=== PATIENT | female | born 1940 | race Caucasian/White ===

== ENCOUNTER 2018-03-31 14:43 | Outpatient (CLI) | payer MEDICARE ==
--- NOTE | 2018-03-31 16:43 | RAD ---
2 VIEWS RIGHT HIP: Date: 03/31/18 COMPARISON: None. HISTORY: Right-sided hip pain. FINDINGS: There is moderate superior joint space narrowing with lateral acetabular osteophyte formation and inf eromedial femoral head osteophyte formation. No fracture or dislocation. IMPRESSION: Degenerative joint disease. POS: [facility]
== END 2018-03-31 14:44 | disposition home or self-care (01) ==
LOC: BURRAD 14:43
PROVIDERS: ATTEND Family Medicine
DX: M25.551 Pain in right hip (principal); M16.11 Unilateral primary osteoarthritis, right hip

== ENCOUNTER 2019-07-09 15:47 | Outpatient (CLI) | payer MEDICARE ==
--- NOTE | 2019-07-09 16:29 | RAD ---
XR Abdomen 1 View/KUB HISTORY: Viral illness. Nausea, vomiting and diarrhea COMPARISON: None. FINDINGS: There are right renal calculi measuring 10 and 13 mm respectively. There are postop changes and metallic hardware in the lower lumbar spine. The bowel gas pattern is unremarkable.
== END 2019-07-09 15:48 | disposition home or self-care (01) ==
LOC: BURRAD 15:47
PROVIDERS: ATTEND Registered Nurse Community Health
DX: B34.9 Viral infection, unspecified (principal)
CPT/HCPCS: 74018

== ENCOUNTER 2021-05-04 17:40 | Emergency (ER) | payer MEDICARE ==
[2021-05-05 08:44] LABS: SARS-CoV-2 PCR by NAA DETECTED (NotDetected)
== END 2021-05-04 18:25 | disposition home or self-care (01) ==
LOC: BURERS 17:40
DX: U07.1 COVID-19 (principal); I10 Essential (primary) hypertension; Z86.73 Personal history of transient ischemic attack (TIA), and cerebral infarction without residual deficits
CPT/HCPCS: U0003; U0005; 99283

== ENCOUNTER 2021-06-02 16:58 | Emergency (ER) | payer MEDICARE ==
[2021-06-02] MEDS ORDERED: Sulfameth/Trimethoprim DS 800-160mg TAB ONE (18:12)
[2021-06-02] MEDS ORDERED: Cephalexin 250 MG CAP ONE (18:12)
== END 2021-06-02 18:05 | disposition home or self-care (01) ==
LOC: BURERS 16:58
DX: L03.012 Cellulitis of left finger (principal); I10 Essential (primary) hypertension
CPT/HCPCS: 99283

== ENCOUNTER 2021-06-13 11:49 | Outpatient (CLI) | payer MEDICARE | END 2021-06-13 11:50 | disposition home or self-care (01) | LOC: BURRAD 11:49 | PROVIDERS: ATTEND Family Medicine | DX: M25.561 Pain in right knee (principal); M17.11 Unilateral primary osteoarthritis, right knee ==

== ENCOUNTER 2021-08-29 14:10 | Outpatient (CLI) | payer MEDICARE ==
[2021-08-29 14:49] LABS: #Basophils 0.1 thou/uL (0.0-0.2); #Eosinphils 0.3 thou/uL (0.0-0.7); #Lymphocytes 2.2 thou/uL (1.20-3.40); #Monocytes 0.7 thou/uL (0.11-0.59); #Neutrophils 6.6 thou/uL (1.40-6.50); %Basophils 1.2 % (0.0-1.0); %Eosinophils 2.8 % (0.0-10.0); %Monocytes 6.7 % (0.0-10.0); %Neutrophils 67.3 % (42.0-75.0); Mean Corpuscular HGB CONC 33.8 g/dL (32.0-36.0); Mean Corpuscular Hemoglobin 31.5 pg (27.0-31.0); Mean Corpuscular Volume 93.1 fL (78.0-98.0); Mean Platelet Volume 8.1 fL (7.4-10.4); Platelet Count 283 thou/uL (130-400); RBC Distribution Width 12.8 % (11.5-14.5); Red Blood Cell (RBC) Count 4.12 mill/uL (4.20-5.40); White Blood Cell (WBC) Count 9.8 thou/uL (4.8-10.8)
[2021-08-29 15:18] LABS: ALT (SGPT) 24 U/L (8-55); AST (SGOT) 17 U/L (5-34); Albumin 4.3 g/dL (3.4-4.8); Alkaline Phosphatase 67 U/L (40-110); Anion Gap 16 mmol/L (10-20); BUN (Urea Nitrogen) 21 mg/dL (9.8-20.1); Bilirubin, Total 0.4 mg/dL (0.2-1.2); Calc. Creatinine Clearance 0 mL/min (70-130); Calcium 10.1 mg/dL (7.8-10.44); Carbon Dioxide 28 mmol/L (23-31); Cardiac Risk 3.3 (Less than 4.5); Chloride 104 mmol/L (98-107); Cholesterol 177 mg/dl (< 200 Desired); Globulin 3.2 g/dL (2.4-3.5); Glucose 97 mg/dL (83-110); HDL Cholesterol 53 mg/dL (>60 Neg Risk); LDL Cholesterol, Calculated 68 mg/dL; Potassium 4.5 mmol/L (3.5-5.1); Protein, Total 7.5 g/dL (5.8-8.1); Sodium 143 mmol/L (136-145); Triglycerides 280 mg/dL (Less than 150)
[2021-08-29 15:39] LABS: Thyroid Stimulating Hormone 1.4502 uIU/mL (0.35-4.94)
[2021-08-29 19:21] LABS: Vitamin D, 25 Hydroxy 39.8 ng/ml (> 30.0)
== END 2021-08-29 14:11 | disposition home or self-care (01) ==
LOC: BUREKG 14:10
PROVIDERS: ATTEND Family Medicine
DX: Z01.818 Encounter for other preprocedural examination (principal); I10 Essential (primary) hypertension; E78.5 Hyperlipidemia, unspecified; E55.9 Vitamin D deficiency, unspecified
CPT/HCPCS: 36415; 80053; 80061; 82306; 84443; 85025; 93005; 93010